=== PATIENT | female | born 1990 | race Caucasian/White ===

== ENCOUNTER 2023-12-13 15:48 | Emergency (ER) | payer BC, SELFPAY ==
--- NOTE | ~2023-12-13 | CT_ITS ---
EXAMINATION: CT brain wo con DATE: 12/13/2023 17:25 INDICATION: Head injury and loss of consciousness after being thrown off of a horse TECHNIQUE: Computed tomography (CT) of the head was performed without intravenous contrast. Sagittal and coronal reconstructions were performed. The mA was adjusted according to patient size. Iterative reconstruction technique was employed. The dose-length product was 605.33 mGy-cm. COMPARISON: None FINDINGS: No fracture. No acute intracranial hemorrhage, acute infarction or abnormal extra axial fluid collect ion. Ventricles are normal and symmetric. No mass/mass effect. The orbits, paranasal sinuses and mast oid air cells are normal. IMPRESSION: 1. Normal head CT. No fracture or acute intracranial process. Reviewed, dictated and finalized at location A.
--- NOTE | ~2023-12-13 | CT_ITS ---
EXAMINATION: CT facial bones wo con DATE: 12/13/2023 17:26 INDICATION: Facial injury with tooth pain and lower lip bruising post fall from horse TECHNIQUE: Computed tomography (CT) of the facial bones and maxillofacial region was performed withou t intravenous contrast. Coronal reconstructions were obtained. Automated exposure control and iterati ve reconstruction technique were employed. The dose-length product was 309.12 mGy-cm. COMPARISON: None. FINDINGS: There is a nondisplaced fracture extending across the nasal process of the maxilla with tiny focus of adjacent soft tissue gas. No other maxillofacial fractures identified. Specifically the mandible, na javan bones, zygomatic arches and ruth of the orbits and paranasal sinuses are all intact. Bilateral t emporomandibular joints are normal alignment. Mild mucoperiosteal thickening at the floor of the left maxillary sinus. Remainder of the paranasal sinuses are clear. Nasal septum is midline. Orbits are n ormal. IMPRESSION: 1. Nondisplaced fracture across the nasal process of the maxilla. Reviewed, dictated and finalized at location A.
[2023-12-13 15:52] VITALS: BP 154/106; PULSE 69; RESP 20; TEMP 36.6; O2SAT 100
[2023-12-13] MEDS: ACETAMINOPHEN 325 MG TABLET 650 MG PO (17:06)
[2023-12-13] MEDS: HYDROcodone/acetaminophen (*CRX) 5-325 MG TABLET 1 TAB PO (17:06)
--- NOTE | 2023-12-13 17:16 | ED.FALL ---
HPI - Fall General Chief Complaint: Fall Stated Complaint: thrown from horse Time Seen by Provider: 12/13/23 16:16 Source: patient and other Mode of arrival: ambulatory Limitations: no limitations History of Present Illness HPI Narrative: 33-year-old female patient who fell while attempting to get on a horse at approximately 3:00 p.m.. She believes she lost consciousness. She injured her face but does not know whether she landed on it or she hit her face on the saddle horn. She is also having some teeth pain but denies any loose or newly broken dentition. Her lower lip grant and she is having some nasal pain. She believes her nose was dislocated and she accidentally reduced it on her own when she reached up to feel for any injuries. She denies any neck or back pain. She is not on any anticoagulation. She has not yet taken anything for pain. Denies alcohol today. No vomiting or seizures after the accident Related Data Allergies Allergy/AdvReac Type Severity Reaction Status Date / Time amoxicillin Allergy Mild Verified 08/14/09 17:38 [facility] Social History Social History Alcohol intake: never Exam Narrative: GENERAL: Well-appearing, well-nourished, and in no acute distress. HEAD: Normocephalic, atraumatic. EYES: Non injected, non icteric ENT: Nares clear, no rhinorrhea or epistaxis. No loose or broken dentition. No jaw malocclusion. External appearance nose is grossly normal. No septal hematoma bilaterally NECK: Supple. Full range of motion and no tenderness to palpation of cervical spine which are midline CHEST: Speaking in full sentences. No respiratory distress. HEART: Regular rate and rhythm. . ABDOMEN: Soft, nondistended. EXTREMITIES: Normal range of motion. No edema. SKIN: Warm, dry, no rash. NEURO: No focal deficits. Alert and oriented x3. Facial movements x3 intact and symmetric (smile, closed eyes, furrowed brow). Sensation intact across distribution of the face and symmetric bilaterally. PSYCH: Normal mood and affect. Course Vital Signs Vital signs: Vital Signs Temperature 97.8 F 12/13/23 15:52 Pulse Rate 69 12/13/23 15:52 Respiratory Rate 20 12/13/23 15:52 Blood Pressure 154/106 H 12/13/23 15:52 Pulse Oximetry 100 04/03/24 15:52 Oxygen Delivery Room Air 12/13/23 15:52 Temperature 97.8 F 12/13/23 15:52 Pulse Rate 80 12/13/23 18:43 Respiratory Rate 20 12/13/23 18:43 Blood Pressure 133/76 12/13/23 18:43 Pulse Oximetry 99 12/13/23 18:43 Oxygen Delivery Room Air 12/13/23 15:52 MDM - Fall MDM Narrative Medical decision making narrative: 33-year-old female patient who fell while attempting to get on a horse at approximately 3:00 p.m.. She believes she lost consciousness. She injured her face but does not know whether she landed on it or she hit her face on the saddle horn. She is also having some teeth pain but denies any loose or newly broken dentition. Her lower lip grant and she is having some nasal pain. She believes her nose was dislocated and she accidentally reduced it on her own when she reached up to feel for any injuries. In the emergency department she is afebrile with vital signs notable for hypertension. She is given pain medicine we will obtain CT imaging. Patient has a fracture as described below. No septal hematoma. Patient is given 1st dose of antibiotics and discharged home with nasal fracture instructions including nasal precautions such as not blowing nose, using antibiotic and nasal spray and following up with ear nose and throat. She verifies understanding and is in agreement. Discharged in stable condition. Imaging Data Radiologist's impression: Impressions Head CT 12/13/23 17:44 IMPRESSION: 1. Normal head CT. No fracture or acute intracranial process. Face CT 12/13/23 17:46 IMPRESSION: 1. Nondisplaced fracture across the nasal process of the maxilla. Discharge Plan Discharge Clinical
[2023-12-13 18:43] VITALS: BP 133/76; PULSE 80; RESP 20; O2SAT 99
[2023-12-13] MEDS: FLUTICASONE PROPIONATE 0.05% NA SPR 16 GM BTL (*BKC) 1 SPRAY NASAL (18:43)
[2023-12-13] MEDS: AMOXICILLIN/CLAVULANATE K 875-125 MG TAB 1 TABLET PO (18:43)
== END 2023-12-13 18:44 | disposition home or self-care (01) ==
PROVIDERS: Emergency Provider Student in an Organized Health Care Education/Training Program; Referring Provider Emergency Medicine
DX: S02.401A Maxillary fracture, unspecified side, initial encounter for closed fracture (principal); V80.919A Animal-rider injured in unspecified transport accident, initial encounter
CPT/HCPCS: 70450; 70486; 99284; A9270